=== PATIENT | female | born 1970 | race Asian ===

== ENCOUNTER 2022-03-04 03:23 | Emergency (ER) | payer SELFPAY ==
[2022-03-04 02:33] LABS: ANION GAP 23.9 mEq/L (7-13); CHLORIDE,CL 104 mmol/L (98-107); SODIUM,NA 142 mmol/L (136-145)
[2022-03-04 02:55] LABS: ESTIMATED GFR 11 mL/min (>=60)
[~2022-03-04 03:23] MED LIST: 50% Dextrose in Water 50 ML Syringe IVPUSH ONE; HYDROmorphone 0.5 MG/0.5 ML Syringe IVPUSH ONE; Sodium Chloride 0.9% 1,000 ML IV ONE
[2022-03-04 03:38] LABS: CORONAVIRUS COVID-19 NAA NEGATIVE (NEGATIVE)
[2022-03-04] MEDS ORDERED: Ondansetron 4 MG/2 ML SDV IVPUSH ONE (03:48)
== END 2022-03-04 04:05 ==
LOC: DL.ED 03:23
DX: E11.649 Type 2 diabetes mellitus with hypoglycemia without coma (principal); N17.9 Acute kidney failure, unspecified; R77.8 Other specified abnormalities of plasma proteins; I10 Essential (primary) hypertension; Z88.5 Allergy status to narcotic agent; Z79.4 Long term (current) use of insulin; Z79.899 Other long term (current) drug therapy; Z20.822 Contact with and (suspected) exposure to COVID-19
CPT/HCPCS: 0240U; 36415; 70450; 80053; 82947; 83605; 84484; 85025; 93005; 96361; 96374; 96375; 99285; J1170; J2405; J7030